=== PATIENT | female | born 1955 | race Caucasian/White ===

== ENCOUNTER 2021-01-05 13:58 | Outpatient (CLI) | payer MEDICARE, SELFPAY | END 2021-01-05 13:59 | disposition home or self-care (01) | LOC: ANHCOVIDVC 13:58 | PROVIDERS: PCP Internal Medicine | DX: Z23 Encounter for immunization (principal) | CPT/HCPCS: 0001A; 91300 ==

== ENCOUNTER 2021-01-26 14:00 | Outpatient (CLI) | payer MEDICARE, SELFPAY | END 2021-01-26 14:01 | disposition home or self-care (01) | LOC: ANHCOVIDVC 14:01 | PROVIDERS: PCP Internal Medicine | DX: Z23 Encounter for immunization (principal) | CPT/HCPCS: 0002A; 91300 ==

== ENCOUNTER 2021-10-17 00:46 | Day surgery (SDC) | payer MEDICARE, MEDICAID, SELFPAY ==
[2021-10-07 08:55] VITALS: BMI 35.9
[2021-10-17 08:58] VITALS: BP 131/53; PULSE 88; RESP 18; TEMP 36.4; O2SAT 95; BMI 34.9
--- NOTE | 2021-10-17 09:09 | PM.HPGS ---
History of Present Illness History of Present Illness Consent: Risks, benefits, and alternatives have been discussed and questions answered. Patient agrees to proceed with procedure. Chief complaint: hx of colon polyps Narrative: Palak Jose is a 66 year old female Referred for colon cancer screening. She had a polyp removed 6 years ago Review of Systems Review of Systems: All systems reviewed & are unremarkable except as noted in HPI and below PMFSH Surgical History Surgical History History of bilateral tubal ligation History of cholecystectomy History of hernia repair History of hip replacement Family History Family History Sibling Patient's brother is in good health Family history of lung cancer Mother Family history of lung cancer, Onset Age: 58 Family history of thyroid disease Father Family history of malignant neoplasm of brain, Onset Age: 62 Other Cerebrovascular accident Family history of alcoholism Family history of arthritis Family history of heart disease in male family member before age 55 Family history of lung disease Family history of malignant neoplasm Social History Social History Smoking packs per day: 0.25 Smoking cigarettes per day: 5.0 Years smoked: 8 Smoking pack-years: 2.00 Smoking status: Former smoker Tobacco type: cigarettes Second hand tobacco smoke exposure: No Smoking end date: 11/05/77 Alcohol intake: current Alcohol use details: rare/special occasions Substance use: never Substance use type: does not use Living arrangements: with family Spiritual care concerns: No Meds Home Medications and Allergies Home Medications Medication Instructions Recorded Confirmed Type azelastine 137 mcg (0.1 %) nasal 2 spray INTRANASAL Q12H #30 ml 08/05/21 10/17/21 Rx spray aerosol lisinopril 10 See Rx Instructions PO DAILY #45 08/05/21 10/17/21 Rx mg-hydrochlorothiazide 12.5 mg tablet tablet lorazepam 0.5 mg tablet 0.5 mg PO DAILY PRN #30 tablet 08/05/21 10/17/21 Rx Allergies Allergy/AdvReac Type Severity Reaction Status Date / Time No Known Allergies Allergy Verified 10/17/21 09:06 Vital Signs Vital Signs - 24 hr 10/17/21 08:58 Temperature 36.4 C Pulse Rate 88 Respiratory Rate 18 Blood Pressure 131/53 L Pulse Oximetry 95 Assessment and Plan Assessment and plan (1) Colon cancer screening: Code(s): Z12.11 - Encounter for screening for malignant neoplasm of colon Status: Acute Assessment and Plan: Colonoscopy with possible biopsy or polypectomy or cautery or injection of substances.
--- NOTE | 2021-10-17 09:16 | WPDANESEPPF ---
Anes - Initial Pre Proc Eval Procedure: Operation Date: 10/17/21 10:00 Proposed Procedures p Screening Colonoscopy - Spike Rodas MD Date/Time: 10/17/21 09:16 Surgeon: Spike Rodas MD Pre Op Diagnosis: hx of colon polyps Patient Data Age: 66 Gender: F Height: 1.65 m Weight: 95.4 kg Last Vital Signs Temp 36.4 C 10/17/21 08:58 Pulse 88 10/17/21 08:58 Resp 18 10/17/21 08:58 BP 131/53 L 10/17/21 08:58 Pulse Ox 95 10/17/21 08:58 Allergies Allergy/AdvReac Type Severity Reaction Status Date / Time No Known Allergies Allergy Verified 10/17/21 09:06 Home Medications Medication Instructions Recorded Confirmed Type azelastine 137 mcg (0.1 %) nasal 2 spray INTRANASAL Q12H #30 ml 08/05/21 10/17/21 Rx spray aerosol lisinopril 10 See Rx Instructions PO DAILY #45 08/05/21 10/17/21 Rx mg-hydrochlorothiazide 12.5 mg tablet tablet lorazepam 0.5 mg tablet 0.5 mg PO DAILY PRN #30 tablet 08/05/21 10/17/21 Rx Patient hx anesthesia problems: none Family hx anesthesia problems: none Results Review: All pre-operative results and documents have been reviewed as part of the pre-operative evaluation. [facility] Surgical History Surgical History History of bilateral tubal ligation History of cholecystectomy History of hernia repair History of hip replacement Family History Family History Sibling Patient's brother is in good health Family history of lung cancer Mother Family history of lung cancer, Onset Age: 58 Family history of thyroid disease Father Family history of malignant neoplasm of brain, Onset Age: 62 Other Cerebrovascular accident Family history of alcoholism Family history of arthritis Family history of heart disease in male family member before age 55 Family history of lung disease Family history of malignant neoplasm Social History Social History Smoking packs per day: 0.25 Smoking cigarettes per day: 5.0 Years smoked: 8 Smoking pack-years: 2.00 Smoking status: Former smoker Tobacco type: cigarettes Second hand tobacco smoke exposure: No Smoking end date: 11/05/77 Alcohol intake: current Alcohol use details: rare/special occasions Substance use: never Substance use type: does not use Living arrangements: with family Spiritual care concerns: No Anes - Eval Final PreProcedure Day of Procedure 10/17/21 09:16 Patient weight: obese Heart: regular rate and rhythm Lungs: clear to auscultation Airway: Mallampati scale class II Neurological: alert and oriented Last oral intake: >/= 8 hours ASA classification: III Emergent: no Anesthetic plan: proceed Anesthesia type and monitoring: general GIVS and standard monitoring Results Review: All pre-operative results and documents have been reviewed as part of the pre-operative evaluation. Informed Consent: The patient's anesthetic plan and its attendant risks and benefits were discussed with the patient/family/POA. Questions were solicited and answers provided to the satisfaction of the patient/family/POA.
[2021-10-17] MEDS: LACTATED RINGERS 1,000 ML 150 ML IV CONT (09:18)
[2021-10-17 10:00] VITALS: BP 100/68; PULSE 73; RESP 16; O2SAT 92
[2021-10-17 10:10] VITALS: BP 121/69; PULSE 76; RESP 22; O2SAT 94
[2021-10-17 10:20] VITALS: BP 118/58; PULSE 73; RESP 21; O2SAT 98
== END 2021-10-17 10:40 | disposition home or self-care (01) ==
PROVIDERS: PCP Internal Medicine; Visit Provider Internal Medicine Gastroenterology
PROC: 0DJD8ZZ Inspection of Lower Intestinal Tract, Via Natural or Artificial Opening Endoscopic (ICD-10-PCS; CPT 45378; principal; 2021-10-17 10:00)
DX: Z12.11 Encounter for screening for malignant neoplasm of colon (principal); K57.30 Diverticulosis of large intestine without perforation or abscess without bleeding; Z90.49 Acquired absence of other specified parts of digestive tract; Z96.649 Presence of unspecified artificial hip joint
CPT/HCPCS: G0121; J2704; J7120

== ENCOUNTER → 2022-09-22 13:51 | Outpatient (CLI) | payer MEDICARE, MEDICAID, SELFPAY ==
--- NOTE | ~2022-09-22 | XR_ITS ---
XR_CERV2-3V_CR DATE: 09/22/2022 14:06 INDICATION: Fall 4 days ago. Left neck pain. TECHNIQUE: AP, open-mouth, lateral views COMPARISON: None FINDINGS: C1 and C2 are normally aligned and the odontoid process is intact. There is straightening of the cervical spine which may be due to muscle spasm. There is minimal anterolisthesis at C4-5 and C7-T1. There is moderately severe degenerative disc disease at C5-6. No fracture or dislocation or locked facet or prevertebral soft tissue swelling. IMPRESSION: Straightening of cervical spine, which may be due to muscle spasm Minimal anterolisthesis at C4-5 and C7-T1 Moderately severe degenerative disc disease at C5-6 Reviewed, dictated and finalized at Location A. Reviewed, dictated and finalized at location B. [facility]
== END ==
PROVIDERS: PCP Internal Medicine; Visit Provider Internal Medicine
DX: M50.322 Other cervical disc degeneration at C5-C6 level (principal)
CPT/HCPCS: 72040

== ENCOUNTER 2023-04-10 10:36 | Emergency (ER) | payer MEDICARE, MEDICAID, SELFPAY ==
[2023-04-10 10:41] VITALS: BP 142/88; PULSE 84; RESP 16; TEMP 36.6; O2SAT 98
--- NOTE | 2023-04-10 10:44 | ED.EAR ---
HPI - Ear Problem General Chief complaint: Ear Stated complaint: ear ache Time Seen by Provider: 04/10/23 10:44 Source: patient Mode of arrival: ambulatory Limitations: no limitations History of Present Illness HPI Narrative: Patient is a 68-year-old female presenting to the emergency department for right ear pain and right upper maxillary sinus pain. Patient reports subjective fever and chills but no documented fever over the past few days. She denies drainage from the ear. She reports congestion and watery eyes as well. She denies ear swelling or pain behind the ear. No neck pain or swelling. No tooth pain or difficulty with swallowing. Patient denies difficulty with speech, chest pain, shortness of breath, cough. She denies recent sick contacts. No recent fresh or pool water exposure. Patient did report a popping sensation in right ear but denies any discharge or blood present; no difficulty with hearing. Related Data Allergies Allergy/AdvReac Type Severity Reaction Status Date / Time No Known Allergies Allergy Verified 04/10/23 10:43 Review of Systems Review of Systems: CONSTITUTIONAL: Reports subjective fever, denies chills EYES: Denies visual changes, redness, or discharge. ENT: Reports rhinorrhea, congestion, reports right ear otalgia, denies sore throat CARDIOVASCULAR: Denies chest pain, palpitations, or edema. RESPIRATORY: Denies cough or dyspnea. GASTROINTESTINAL: Denies abdominal pain, nausea, vomiting, or diarrhea. GENITOURINARY: Denies dysuria or hematuria. SKIN: Denies rash or itching. MUSCULOSKELETAL: Denies back pain, joint pain, or myalgia. NEUROLOGIC: Denies headache, numbness, or weakness. [facility] Past Medical History Medical History (Updated 04/10/23 @ 11:31 by Whitley Leong MD) Allergic rhinitis Anxiety Benign essential hypertension Colon cancer screening Hyperglycemia Neck pain, acute Obesity (BMI 30-39.9) Toothache Surgical History Surgical History History of bilateral tubal ligation History of cholecystectomy History of hernia repair History of hip replacement Family History Family History Sibling Patient's brother is in good health Family history of lung cancer Mother Family history of lung cancer, Onset Age: 58 Family history of thyroid disease Father Family history of malignant neoplasm of brain, Onset Age: 62 Other Cerebrovascular accident Family history of alcoholism Family history of arthritis Family history of heart disease in male family member before age 55 Family history of lung disease Family history of malignant neoplasm Social History Social History Smoking packs per day: 0.25 Smoking cigarettes per day: 5.0 Years smoked: 8 Smoking pack-years: 2.00 Smoking status: Former smoker Tobacco type: cigarettes Second hand tobacco smoke exposure: No Smoking end date: 11/05/77 Alcohol intake: current Alcohol use details: rare/special occasions Substance use: never Substance use type: does not use Lack of Transportation: No Lack of Food: Never True Current Housing: I Have Housing Concerned About Future Housing: No Difficulty Paying Gas/Electric Bills: No Difficulty Paying for Meds: Decline to Answer Currently Unemployed: YES Education: Associate Degree Difficulty w/ Childcare or Family Care: No Living arrangements: with family Spiritual care concerns: No Exam Narrative: GENERAL: Awake, alert, conversant HEAD: Normocephalic, atraumatic. EYES: PERRLA and EOMI. ENT: Nares clear, no rhinorrhea or epistaxis. Mucous membranes moist. Tympanic membrane of right ear is bulging, erythematous, no perforation. There is erythema of the external ear canal without significant edema. No edema or erythema of the pinna of the ear and no
--- NOTE | 2023-04-10 11:09 | PC.NURSE ---
Pt states that she has been dealing with sinus pressure on the right side of her face and and right ear. Pt also has had postnasal drip. Also having thick yellow discharge running from her nose. States she tried to see her PCP and was directed to the ED.
== END 2023-04-10 11:37 | disposition home or self-care (01) ==
PROVIDERS: Emergency Provider Emergency Medicine; PCP Internal Medicine
DX: H66.91 Otitis media, unspecified, right ear (principal); J32.9 Chronic sinusitis, unspecified; I10 Essential (primary) hypertension; E66.9 Obesity, unspecified; Z68.34 Body mass index [BMI] 34.0-34.9, adult; Z96.649 Presence of unspecified artificial hip joint; Z87.891 Personal history of nicotine dependence; Z90.49 Acquired absence of other specified parts of digestive tract
CPT/HCPCS: 99283

== ENCOUNTER 2024-07-21 11:43 | Outpatient (CLI) | payer OTHER, SELFPAY ==
--- NOTE | ~2024-07-21 | XR_ITS ---
XR shoulder LT min 2V Ordering provider: Aman Borrego DO History: . M25.512 - Pain in left shoulder NON INJ . Comparison: None. FINDINGS: BONES: No acute fracture or dislocation. JOINT SPACES: The acromioclavicular joint shows osteoarthritic changes. The glenohumeral joint is nor mal. SOFT TISSUES: Normal. IMPRESSION: No acute osseous abnormality left shoulder. Reviewed, dictated and finalized at location A.
== END 2024-07-21 11:44 | disposition home or self-care (01) ==
PROVIDERS: PCP Internal Medicine; Visit Provider Internal Medicine
DX: M25.512 Pain in left shoulder (principal)
CPT/HCPCS: 73030

== ENCOUNTER 2025-07-08 13:41 | Outpatient (CLI) | payer OTHER, SELFPAY ==
--- NOTE | ~2025-07-08 | DEXA_ITS ---
Bone Density Report Name: LATA CESAR Age: 70 Sex: Female Ethnicity: White Date of : 1955 Indication: postmenopausal; screening for osteoporosis; height loss; cancer; Referring Provider: CHRISTY HUNTER Study: Bone densitometry was performed. Exam Date: July 08, 2025 Accession number: [id number] Bone Density: Region BMD T-score Z-score Classification AP Spine(L1-L4) 1.183 1.2 3.4 Normal Femoral Neck (Right) 0.853 0.0 1.8 Normal Total Hip (Right) 1.005 0.5 2.0 Normal World Health Organization criteria for BMD impression classify patients as: Normal (T-score at or above -1.0), Osteopenia (T-score between -1.0 and -2.5), or Osteoporosis (T-score at or below -2.5). 10-year Fracture Risk: FRAX not reported because: All T-scores for Spine Total, Hip Total, Femoral Neck at or above -1.0 Previous Exams: Region Exam Age BMD T-score BMD Change BMD Change Date g/cm2 vs Baseline vs Previous Total Hip(Right) 07/08/2025 70 1.005 0.5 0.000 (0.0%) 0.000 (0.0%) 09/02/2019 64 1.004 0.5 *Denotes significance at 95% confidence level, LSC for Total Hip = 0.027 g/cm2 Clinical Information Provided by Patient: Has used the following medications: Vitamin D, Calcium Has the following medical conditions: Cancer Patient maximum height was 64.0 Menopause Age: 55 Drinks caffeinated beverages Onset of menses at age 15 Number of children 3 Impression: The patient has normal bone mass. No significant bone loss was observed. Discussion: BONE DENSITY IS ABOVE THE MINIMUM DESIRABLE LEVEL AT ALL SKELETAL SITES TESTED. This patient?s bone mineral density is above the minimum desirable level (T-score -1.0 or better) at all sites measured. The patient should follow a healthful lifestyle (good nutrition with adequate calcium and vitamin D, and appropriate weight-bearing exercise). Follow-Up: Consider repeating this study in 5 years or sooner if there is some new clinical indication. Reported by: MARY BETH on 07/08/2025 2:25:00 PM. Reviewed, dictated and finalized at location A.
--- OUTSIDE RECORDS SUMMARY | 2025-07-08 15:03 | XMS_ITS | Clinical Summary ---
Author Organization [facility] [employer] Address [address] [place] [address] Care Team Providers Care Bankruptcy Assistant Name Role Phone Dl Kowalski DO Primary Care Provider [phone] Source Comments [facility],non-owned Affiliates and Associated Physician Practices is amultiple site organization consisting of ambulatory clinics and hospital sitesin [place], [place], [place] and [place]. This disclosure is being madepursuant to the Care Everywhere program and may not contain all information available regarding this patient. Last updated 18.[facility] Allergies No known active allergies Medications * Be aware that medications may not be up to date on this document. Alwaysverify current medications with the patient. 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 Gender Identity Not on file Sexual Orientation Not on file Last Filed Vital Signs Vital Sign Reading Time Taken Comments Blood Pressure 132/73 07/04/2019 9:29 AM CDT Pulse 69 07/04/2019 9:29 AM CDT Temperature 36.2 C (97.2 F) 07/04/2019 9:29 AM CDT Respiratory Rate 16 07/27/2016 8:41 AM CDT Oxygen Saturation 98% 07/04/2019 9:29 AM CDT Inhaled Oxygen Concentration - - Weight 97.5 kg (215 lb) 09/23/2019 3:41 PM LOADER OPERATOR SUPERVISOR Height 160 cm (5' 3) 09/23/2019 3:41 PM LOADER OPERATOR SUPERVISOR Body Mass Index 38.09 09/23/2019 3:41 PM LOADER OPERATOR SUPERVISOR Plan of Treatment Health Maintenance Due Date Last Done Comments BONE DENSITY TESTING 1955 COLOGUARD (AGES 45-75) - COL ON CA SCREENING 1955 COLON MONITORING 1955 COLONOSCOPY - COLON CA SCREENING 1955 CT COLONOGRAPHY - COLON CA SCREENING 1955 FLEX SIG - COLON CA SCREENING 1955 LIPID TESTING 1955 MAMMOGRAM 1955 MEDICARE AWV 12 MONTHS 1955 HEPATITIS C SCREENING 03/14/1973 DTAP/TDAP/TD VACCINES (1 - Tdap) 1974 PNEUMOCOCCAL VACCINE 50+ (1 of 1 - PCV) 2005 ZOSTER VACCINE (1 of 2) 2005 Colorectal Cancer Screening 05/15/2013 FIT - COLON CA SCREENING 05/15/2013 05/15/2012 COVID-19 VACCINE (1 - 2023-2 5 season) 2024 DEPRESSION SCREENING 11/05/2024 INFLUENZA VACCINE (#1) 2025 Respiratory Syncytial Virus (RSV) Vaccine Pt: or over 60 yrs (1 - 1-dose 75+ series) 2030 HEPATITIS B VACCINE Aged Out No longe r eligible based on patient's age to complete this topic HIB VACCINE Aged Out No longer eligi ble based on patient's age to complete this topic HPV VACCINE Aged Out No longer eligi ble based on patient's age to complete this topic MENINGOCOCCAL (Group B) VACC INE SHARED DECISION-MAKING Aged Out No longer eligibl e based on patient's age to complete this topic MENINGOCOCCAL GROUPS A/C/Y/W VACCINE Aged Out No longer eligible b ased on patient's age to complete this topic Insurance MEDICAID - OUT OF STATE MEDICARE MEDICARE MEDICARE [facility] MEDICAID - OUT OF STATE Advance Directives * Full Code (Latest Code Status on File) Date Activated Date Inactivated Comments 10/06/2019 7:43 AM 10/06/2019 9:28 AM Care Teams Bankruptcy Assistant Relationship Specialty Start Date End Date Dl Kowalski DO [address] [place] [address] PCP - General 05/06/19
== END 2025-07-08 13:42 | disposition home or self-care (01) ==
LOC: ANHFOHIMG 13:48
PROVIDERS: PCP Nurse Practitioner; Visit Provider Nurse Practitioner
DX: Z78.0 Asymptomatic menopausal state (principal)
CPT/HCPCS: 77080

== ENCOUNTER 2025-07-14 13:54 | Outpatient (CLI) | payer OTHER, SELFPAY ==
--- NOTE | ~2025-07-14 | XR_ITS ---
EXAMINATION: XR ankle LT 2V, 07/14/2025 14:04 CDT HISTORY: NON TRAUMA LATERAL AND POSTERIOR PAIN FOR 3 MONTHS NO TRAUMA COMPARISON: No comparisons available. Findings: The right corticated fractures of the medial malleolus, no acute fracture Large calcaneal spur. Moderate degenerative uropathy. Soft tissues unremarkable. Impression: No acute fracture or malalignment. Reviewed, dictated and finalized at location A. Impression: No acute fracture or malalignment.
--- OUTSIDE RECORDS SUMMARY | 2025-07-14 15:36 | XMS_ITS | Clinical Summary ---
Author Organization [facility] Address [address] [place] [address] Care Team Providers Care Grade Checker Name Role Phone Dl Kowalski DO Primary Care Provider [phone] Source Comments [facility],non-owned Affiliates and Associated Physician Practices is amultiple site organization consisting of ambulatory clinics and hospital sitesin [place], [place], [place] and [place]. This disclosure is being madepursuant to the Care Everywhere program and may not contain all information available regarding this patient. 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 Gender Identity Not on file Sexual Orientation [...] 97.5 kg (215 lb) 09/23/2019 3:41 PM TAMPER OPERATOR Height 160 cm (5' 3) 09/23/2019 3:41 PM TAMPER OPERATOR Body Mass Index 38.09 09/23/2019 3:41 PM TAMPER OPERATOR Plan of Treatment Health Maintenance Due Date [...] FIT - COLON CA SCREENING 05/15/2013 05/15/2012 DEPRESSION SCREENING 11/05/2024 COVID-19 VACCINE (1 - 2023-2 5 season) 2025 INFLUENZA VACCINE (#1) 2025 Respiratory Syncytial Virus [...] - OUT OF STATE MEDICARE MEDICARE MEDICARE [facility] MEDICAID - OUT OF STATE Advance Directives * Full Code (Latest Code Status on File) Date Activated Date Inactivated Comments 10/06/2019 7:43 AM 10/06/2019 9:28 AM Care Teams Grade Checker Relationship Specialty Start Date End Date Dl Kowalski DO [address] [place] [address] PCP - General 05/06/19
== END 2025-07-14 13:55 | disposition home or self-care (01) ==
PROVIDERS: PCP Nurse Practitioner; Visit Provider Nurse Practitioner
DX: M25.572 Pain in left ankle and joints of left foot (principal)
CPT/HCPCS: 73600